=== PATIENT | male | born 2000 | race Caucasian/White ===

== ENCOUNTER 2022-07-03 12:22 | Emergency (ER) | payer MEDICAID ==
[~2022-07-03] VITALS: Ht 160 cm; Wt 54.5 kg
[2022-07-03 12:27] VITALS: BP 119/69
[2022-07-03] MEDS ORDERED: ACET-2708 MT (13:54)
[2022-07-03] MEDS ORDERED: OFLO5DRO4 EACH EAR (13:55)
== END 2022-07-03 14:42 | disposition home or self-care (01) ==
LOC: ER 12:50
DX: H60.91 Unspecified otitis externa, right ear (principal)
CPT/HCPCS: 99283